=== PATIENT | female | born 1985 | race Caucasian/White ===

== ENCOUNTER → 2018-02-27 | Outpatient (REF) | payer OTHER ==
[~2018-02-27] MED LIST: ACET50TA PO; IBUP80TA PO; PRENTAB9 PO
[2018-03-01 14:54] LABS: HPV HYBRID CAPTURE II Negative (Negative)
== END ==
LOC: M LAB REF 17:55
PROVIDERS: ATTEND Advanced Practice Midwife
DX: Z12.4 Encounter for screening for malignant neoplasm of cervix (principal)

== ENCOUNTER → 2019-03-11 | Outpatient (REF) | payer OTHER ==
[~2019-03-11] MED LIST changes: -ACET50TA PO; +MAPA500T17 PO
[2019-03-11 14:25] LABS: HEMATOCRIT 38.8 % (36.0-47.0); HEMOGLOBIN 13.2 g/dl (12.0-15.5); MEAN CORPUSCULAR HEMOGLOBIN 32.7 pg (27.0-33.0); PLATELET COUNT, AUTOMATED 183 10^3/uL (150-450); RED BLOOD COUNT 4.04 10^6/uL (4.00-5.40); WHITE BLOOD COUNT 5.2 10^3/uL (4.0-10.0)
[2019-03-11 15:02] LABS: CHLAMYDIA DNA AMPLIFICATION NEGATIVE (NEGATIVE); GC DNA AMPLIFICATION NEGATIVE (NEGATIVE)
[2019-03-11 15:08] LABS: HEPATITIS B SURFACE ANTIGEN NEGATIVE (NEGATIVE); HEPATITIS C VIRUS ABY INDEX < 0.0 INDEX (<0.8); HIV 1&2 SCREEN CENTAUR NEGATIVE (NEGATIVE); RUBELLA IgG QUALITATIVE IMMUNE (IMMUNE)
== END ==
LOC: M PLALAB 09:27
PROVIDERS: ATTEND Advanced Practice Midwife
DX: Z32.00 Encounter for pregnancy test, result unknown (principal)

== ENCOUNTER → 2019-05-28 | Outpatient (CLI) | payer OTHER ==
--- NOTE | 2019-05-29 16:44 | REP ---
Clinical: Anatomical evaluation. Comparison: None . Findings: Examination demonstrates a single live intrauterine in variable presentation. motion is identified by technologist. Placenta is noted posterior and grade I with evidence for placenta previa noted. Amniotic fluid volume is normal. Cervix measures 4.0 cm in length and appears closed. No evidence for nuchal cord. Gestational age by LMP 20 weeks 1 day with TERESSA 10/14/2019 . Gestational age by current measurements 19 weeks 68 with TERESSA 10/16/2019 . FHR equals 153 beats per minute. BPD 4.9 cm 20 weeks 5 days HC 17.3 cm 19 weeks 6 days AC 14.8 cm 20 weeks 1 day FL 3.1 cm 19 weeks 5 days HL 3.2 cm 20 weeks 6 days HC/AC ratio 1.17 Estimated weight 321 grams ( 41st percentile). Anatomical assessment demonstrates normal structures including cranium, choroid plexus, cavum, cerebellum/posterior fossa, facial features, lungs, four-chamber heart/ventricular outflow tracts, diaphragm, stomach, cord insertion/three-vessel cord, kidneys/bladder, and extremities. Impression: 1. Posterior placenta with evidence for placenta previa. 2. Single live intrauterine demonstrating appropriate interval growth. Limited evaluation the spine. Remainder of the anatomical assessment is complete and normal.
== END ==
LOC: M WHC 08:48
PROVIDERS: ATTEND Advanced Practice Midwife
DX: Z34.92 Encounter for supervision of normal pregnancy, unspecified, second trimester (principal); Z3A.20 20 weeks gestation of pregnancy

== ENCOUNTER → 2019-06-19 | Outpatient (CLI) | payer OTHER ==
--- NOTE | 2019-06-20 03:41 | REP ---
Clinical: Anatomical evaluation. Comparison: 05/28/2019 Findings: Examination demonstrates a single live intrauterine in variable presentation. motion is identified by technologist. Placenta is noted posterior and grade I evidence for placenta previa. No abruption. Amniotic fluid volume is normal. Cervix measures 4.0 cm in length and appears closed. No evidence for nuchal cord. Gestational age by LMP 23 weeks 2 days with TERESSA 10/14/2019 . Gestational age by current measurements 23 weeks 1 day with TERESSA 10/15/2019 . FHR equals 158 beats per minute. Estimated weight 597 grams ( 50th percentile). Anatomical assessment demonstrates normal structures including spine. Impression: 1. Single live intrauterine in variable presentation demonstrating appropriate interval growth. 2. Posterior placenta with placenta previa noted. 3. In conjunction with prior examination anatomical assessment is complete and normal.
== END ==
LOC: M WHC 10:22
PROVIDERS: ATTEND Advanced Practice Midwife
DX: O44.02 Complete placenta previa NOS or without hemorrhage, second trimester (principal); Z3A.23 23 weeks gestation of pregnancy

== ENCOUNTER → 2019-07-17 | Outpatient (REF) | payer OTHER ==
[2019-07-17 17:47] LABS: HEMATOCRIT 36.9 % (36.0-47.0); HEMOGLOBIN 12.8 g/dl (12.0-15.5); MEAN CORPUSCULAR HEMOGLOBIN 34.2 pg (27.0-33.0); MEAN CORPUSCULAR HGB CONC 34.7 g/dl (32.0-36.5); MEAN CORPUSCULAR VOLUME 98.7 fl (80.0-96.0); PLATELET COUNT, AUTOMATED 165 10^3/uL (150-450); RED BLOOD COUNT 3.74 10^6/uL (4.00-5.40)
== END ==
LOC: M PLALAB 13:30
PROVIDERS: ATTEND Advanced Practice Midwife
DX: O44.02 Complete placenta previa NOS or without hemorrhage, second trimester (principal)
CPT/HCPCS: 36415; 82950; 85027; 86850; 86900; 86901; G0463

== ENCOUNTER → 2019-08-13 | Outpatient (CLI) | payer OTHER ==
--- NOTE | 2019-08-13 16:16 | REP ---
Clinical: History of placenta previa Comparison: 06/19/2019 . Findings: Examination demonstrates a single live intrauterine in cephalic presentation. motion is identified by technologist. Placenta is noted posterior and grade I with complete previa again noted. Amniotic fluid volume is normal. Cervix measures 3.5 cm in length and appears closed. No evidence for nuchal cord. Gestational age by LMP 31 weeks 1 day with TERESSA 10/14/2019 . FHR equals 136 beats per minute. Estimated weight 1961 grams ( 70th percentile). Impression: 1. Single live advanced gestation in cephalic presentation demonstrating appropriate interval growth. 2. Continued evidence for placenta previa covering the internal os.
== END ==
LOC: M WHC 14:29
PROVIDERS: ATTEND Advanced Practice Midwife
DX: O44.03 Complete placenta previa NOS or without hemorrhage, third trimester (principal); Z3A.31 31 weeks gestation of pregnancy

== ENCOUNTER → 2019-09-11 | Outpatient (CLI) | payer OTHER ==
[~2019-09-11] MED LIST changes: +BETAMETHASONE SOLUSPAN 6MG/ML 5ML VIAL (J0702 PER 3MG) ONE
== END ==
LOC: M LDO 15:35
PROVIDERS: ATTEND Advanced Practice Midwife
DX: O44.03 Complete placenta previa NOS or without hemorrhage, third trimester (principal); Z3A.35 35 weeks gestation of pregnancy
CPT/HCPCS: 96372; J0702

== ENCOUNTER → 2019-09-12 | Outpatient (CLI) | payer OTHER ==
[~2019-09-12] MED LIST changes: -BETAMETHASONE SOLUSPAN 6MG/ML 5ML VIAL (J0702 PER 3MG) ONE
== END ==
LOC: M LDO 15:45
PROVIDERS: ATTEND Advanced Practice Midwife
DX: O44.03 Complete placenta previa NOS or without hemorrhage, third trimester (principal); Z3A.35 35 weeks gestation of pregnancy
CPT/HCPCS: 96372; G0378

== ENCOUNTER → 2019-09-13 | Outpatient (REF) | payer OTHER | LOC: M SFHCPLAZ 08:15 | PROVIDERS: ATTEND Obstetrics & Gynecology | DX: Z34.83 Encounter for supervision of other normal pregnancy, third trimester (principal); Z36.85 Encounter for antenatal screening for Streptococcus B | CPT/HCPCS: 87081; G0463 ==

== ENCOUNTER 2019-09-18 07:30 | Inpatient (IN) | payer OTHER ==
[2019-09-25] MEDS ORDERED: BICITRA 30ML SOLN UDC As Ordered ONE (06:08)
[2019-09-25] MEDS ORDERED: ceFAZolin 2 GM/D5W 50 ML IV BAG (J0690 PER 500MG) As Ordered ONE (06:08)
[2019-09-25] MEDS ORDERED: MORPHINE PRES-FREE INJ 10 MG/10 ML VIAL (J2274) As Ordered ONE (07:14)
[2019-09-25] MEDS ORDERED: OXYTOCIN INJ 10 UNITS/ML VIAL (J2590) As Ordered ONE (07:16)
[2019-09-25] MEDS ORDERED: ONDANSETRON 4MG/2ML VIAL As Ordered ONE (08:18)
[2019-09-25] MEDS ORDERED: dexameTHASONE 4 MG/ML 1ML VIAL (J1100 PER 1MG) As Ordered ONE (08:18)
[2019-09-25] MEDS ORDERED: KETOROLAC 60MG 2ML VIAL As Ordered ONE (08:18)
[2019-09-25] MEDS ORDERED: OXYTOCIN 30 UNITS IN 0.9% NaCl 500ML IV BAG (J2590) As Ordered ONE (08:55)
[2019-09-25] MEDS ORDERED: KETOROLAC 30 MG/ML 1ML VIAL As Ordered ONE ×2 (13:53→20:15)
[2019-09-26] MEDS ORDERED: KETOROLAC 30 MG/ML 1ML VIAL ONE (02:01)
[2019-09-26] MEDS ORDERED: PERCOCET 5MG/325MG TAB ONE ×4 (06:31→19:49)
[2019-09-26] MEDS ORDERED: IBUPROFEN 800 MG TAB ONE ×2 (09:24→18:09)
[2019-09-27] MEDS ORDERED: IBUPROFEN 800 MG TAB ONE ×2 (03:32→09:58)
[2019-09-27] MEDS ORDERED: PERCOCET 5MG/325MG TAB ONE (12:49)
[2019-11-17 01:01] LABS: HEMOGLOBIN 12.8 g/dl (12.0-15.5); MEAN CORPUSCULAR HEMOGLOBIN 34.1 pg (27.0-33.0); MEAN CORPUSCULAR HGB CONC 35.6 g/dl (32.0-36.5); PLATELET COUNT, AUTOMATED 178 10^3/uL (150-450); RED BLOOD COUNT 3.75 10^6/uL (4.00-5.40); WHITE BLOOD COUNT 13.9 10^3/uL (4.0-10.0)
[2019-11-17 16:43] LABS: HEMATOCRIT 35.2 % (36.0-47.0); HEMOGLOBIN 11.9 g/dl (12.0-15.5); MEAN CORPUSCULAR HEMOGLOBIN 33.6 pg (27.0-33.0); MEAN CORPUSCULAR HGB CONC 33.8 g/dl (32.0-36.5); MEAN CORPUSCULAR VOLUME 99.4 fl (80.0-96.0); PLATELET COUNT, AUTOMATED 181 10^3/uL (150-450); RED BLOOD COUNT 3.54 10^6/uL (4.00-5.40); WHITE BLOOD COUNT 14.3 10^3/uL (4.0-10.0)
--- NOTE | 2019-11-21 12:45 | RO ---
DATE OF OPERATION: 09/25/2019 PREOPERATIVE DIAGNOSES: * Placenta previa. * 37 weeks gestation. POSTOPERATIVE DIAGNOSES: * Placenta previa. * 37 weeks gestation. PROCEDURE PERFORMED: Primary low-transverse section. FINDINGS: Placenta previa, cephalic presentation. SURGEON: Jairo Mauricio DO ROBOT DESIGNER: Jhoana Parra CNM (essential role in all aspects of the surgery for delivery of the baby and surgical site exposure). ANESTHESIA: Spinal with Duramorph. SPECIMENS SENT TO PATHOLOGY: None. ESTIMATED BLOOD LOSS: 500 mL. FLUIDS PLACED: 1600 mL lactated ringers. DRAINS: Rodriguez catheter. URINE OUTPUT: 25 mL. COMPLICATIONS: None. PREOPERATIVE ANTIBIOTICS: Ancef 2 grams intravenous (IV) x1. DATA: Apgars 9 and 9. weight 3600 grams (7 pounds 15 ounces) INDICATIONS FOR PROCEDURE: Placenta previa at 37 weeks. DESCRIPTION OF PROCEDURE: The patient was counseled and consented on the risks, benefits, indications, and alternatives of the procedure. Informed consent was obtained. She was taken to the operating room with an IV running and placed on the operating room table where spinal anesthesia was administered and found to be adequate. She was then placed in the dorsal supine position with a leftward tilt. Sequential compression devices were placed on the lower extremities. Rodriguez catheter was placed under sterile conditions. The patient was then prepared and draped in a normal sterile fashion. Time-out was performed per protocol. Spinal anesthesia was again found to be adequate. A Pfannenstiel skin incision was made with a 10-blade. This was dissected down to the level of the rectus sheath fascia. The rectus sheath fascia was incised at the midline and stretched manually. The peritoneum was identified. The peritoneal cavity was entered digitally. The peritoneum was stretched. The Mobius retractor was placed into the intraperitoneal cavity. The vesicouterine peritoneum was dissected off to create a bladder flap. A low-transverse uterine incision was created with a 10-blade. The head delivered through the hysterotomy without any difficulty. The remainder of the body delivered with ease. The placenta was noted to be very low consistent with the diagnosis of placenta previa. The placenta was removed manually without any difficulty. No evidence of abnormal placentation/accreta. The uterine cavity was then cleared of all clot and debris. The hysterotomy was then closed with 0-Vicryl in running lock fashion. This was reinforced with a second imbricating layer with 0-Vicryl in running fashion. Two additional spots were reinforced with 3-0 Vicryl with [id number] stitch. The hysterotomy was noted to be hemostatic. The pelvis was then irrigated. The pericolic gutters were cleared of all clot and debris. The sponge, needle, and instrument counts were correct. The peritoneum was closed with 3-0 Vicryl in running fashion. The rectus muscle bellies were closed with 3-0 Vicryl with two interrupted sutures. The rectus sheath fascia was closed with 0-Vicryl in running fashion. The subcutaneous layer was then irrigated and then reapproximated with 3-0 Vicryl in running fashion. The skin was closed with 4-0 Monocryl in subcuticular fashion. Optifoam bandage was placed over the incision. Sponge, needle, and instrument counts were correct. The patient tolerated the entire procedure well. She was transferred to the Post anesthesia care unit (PACU) in good and stable condition. YANDEL
--- NOTE | 2019-11-22 16:00 | DS ---
DATE OF ADMISSION: 09/25/2019 DATE OF DISCHARGE: 09/27/2019 HISTORY: A 34-year-old female at 37 weeks gestation, diagnosed with placenta previa, presents for primary section. HOSPITAL COURSE: On 09/26/2019, the patient underwent a primary low transverse section for placenta previa. Findings were a 3600 gram . There were no complications. Her postoperative course was unremarkable. She had adequate return of bladder and bowel function. Her postoperative hemoglobin was stable. She was deeded stable for discharge on postoperative day #2. ADMISSION DIAGNOSIS: , 37 weeks, placenta previa. DISCHARGE DIAGNOSES: Delivered. PROCEDURE: Primary low transverse section. DISPOSITION: Patient to followup with Dr. Mauricio in 2 weeks. Instructions were reviewed. YANDLE
== END 2019-09-27 10:50 | disposition home or self-care (01) | DRG 773 ==
LOC: M LDI 09-25 05:25
PROVIDERS: ADMIT Obstetrics & Gynecology; ATTEND Obstetrics & Gynecology
PROC: 10D00Z1 Extraction of Products of Conception, Low, Open Approach (ICD-10-PCS; principal; 2019-09-25 07:30)
DX: O44.40 Low lying placenta NOS or without hemorrhage, unspecified trimester (principal); Z3A.39 39 weeks gestation of pregnancy; Z37.0 Single live birth

== ENCOUNTER → 2019-09-23 | Outpatient (CLI) | payer OTHER | LOC: M WHC 16:12 | PROVIDERS: ATTEND Obstetrics & Gynecology | DX: O44.20 Partial placenta previa NOS or without hemorrhage, unspecified trimester (principal) ==

== ENCOUNTER → 2022-06-15 | Outpatient (CLI) | payer OTHER ==
[2022-06-15 18:06] LABS: HEMATOCRIT 38.5 % (36.0-47.0); HEMOGLOBIN 13.4 g/dl (12.0-15.5); MEAN CORPUSCULAR HEMOGLOBIN 33.2 pg (27.0-33.0); MEAN CORPUSCULAR HGB CONC 34.8 g/dl (32.0-36.5); MEAN CORPUSCULAR VOLUME 95.3 fl (80.0-96.0); PLATELET COUNT, AUTOMATED 198 10^3/uL (150-450); RED BLOOD COUNT 4.04 10^6/uL (4.00-5.40); WHITE BLOOD COUNT 7.8 10^3/uL (4.0-10.0)
[2022-06-15 19:04] LABS: HIV 1&2 SCREEN CENTAUR NEGATIVE (NEGATIVE)
[2022-06-15 20:10] LABS: GC DNA AMPLIFICATION NEGATIVE (NEGATIVE)
== END ==
LOC: M PLALAB 15:10
PROVIDERS: ATTEND Advanced Practice Midwife
DX: O34.219 Maternal care for unspecified type scar from previous cesarean delivery (principal); Z3A.13 13 weeks gestation of pregnancy
CPT/HCPCS: 36415; 85027; 86762; 86780; 86803; 86850; 86900; 86901; 87086; 87340; 87389; 87810; 87850; G0463

== ENCOUNTER → 2022-08-08 | Outpatient (CLI) | payer OTHER | LOC: M WHC 08:05 | PROVIDERS: ATTEND Obstetrics & Gynecology | DX: Z34.92 Encounter for supervision of normal pregnancy, unspecified, second trimester (principal); Z3A.20 20 weeks gestation of pregnancy ==

== ENCOUNTER → 2022-11-29 | Outpatient (REF) | payer OTHER | LOC: M SFHCWAGY 12:48 | PROVIDERS: ATTEND Obstetrics & Gynecology | DX: Z36.85 Encounter for antenatal screening for Streptococcus B (principal) | CPT/HCPCS: 87081; G0463 ==

== ENCOUNTER 2022-12-29 18:33 | Inpatient (IN) | payer OTHER ==
[~2022-12-29] VITALS: Ht 180.3 cm; Wt 120.1 kg
[2022-12-29] MEDS ORDERED: TUMS500C PO (19:06)
[2022-12-29] MEDS ORDERED: ONDA-83 PO (19:06)
[2022-12-29] MEDS ORDERED: HOME MED LIST COMPLETE! XX SCH (19:10)
[2022-12-29 19:13] LABS: HEMATOCRIT 35.7 % (36.0-47.0); HEMOGLOBIN 12.5 g/dl (12.0-15.5); MEAN CORPUSCULAR VOLUME 94.2 fl (80.0-96.0); PLATELET COUNT, AUTOMATED 157 10^3/uL (150-450); RED BLOOD COUNT 3.79 10^6/uL (4.00-5.40); WHITE BLOOD COUNT 11.4 10^3/uL (4.0-10.0)
[2022-12-29 19:27] VITALS: BP 107/76
[2022-12-29] MEDS ORDERED: OXYTOCIN DRIP 30 UNITS in IV 1 EA IV SCH (20:50)
[2022-12-29] MEDS ORDERED: LACTATED RINGER'S 1000 ML IV STA (20:50)
[2022-12-29] MEDS ORDERED: OXYTOCIN DRIP 30 UNITS in IV 1 EA IV PRN (20:50)
[2022-12-29] MEDS ORDERED: LIDOCAINE 1% MDV 20ML VIAL INFIL PRN (20:50)
[2022-12-29] MEDS ORDERED: METHYLERGONOVINE MALEATE 0.2MG/ML 1ML VIAL IM PRN (20:50)
[2022-12-29] MEDS ORDERED: CARBOPROST TROMETHAMINE 250 MCG/ML AMP IM PRN (20:50)
[2022-12-29] MEDS ORDERED: TRANEXAMIC ACID INJection 1,000 MG in NS 100 ML IV PRN (20:50)
[2022-12-29 21:34] VITALS: BP 109/69
[2022-12-29] MEDS: LR 1,000 ML IV SCH (21:35)
[2022-12-29] MEDS ORDERED: ONDANSETRON 4MG 2ML VIAL IV PRN (22:05)
[2022-12-29 22:43] VITALS: BP 117/75
[2022-12-30] VITALS (17 sets, daily range): BP systolic 97–149; BP diastolic 61–85; TEMP 98.4; O2SAT 95–100
[2022-12-30] MEDS ORDERED: NALBUPHINE HCL 1MG/0.1ML (100MG/10ML) MDV IV PRN ×2 (08:50→12:30)
[2022-12-30] MEDS ORDERED: oxyCODONE 5MG TAB PO PRN ×2 (08:50→12:30)
[2022-12-30] MEDS ORDERED: fentaNYL 100 MCG/2 ML INJECTION IV PRN ×2 (08:50→12:30)
[2022-12-30] MEDS ORDERED: LR 1,000 ML IV SCH ×2 (08:50→12:25)
[2022-12-30] MEDS ORDERED: ONDANSETRON 4MG 2ML VIAL IV PRN ×5 (08:50→12:30)
[2022-12-30] MEDS ORDERED: ePHEDrine SULFATE 25 MG/5 ML(5MG/ML) SYRINGE IVP PRN (08:50)
[2022-12-30] MEDS ORDERED: **NOTE PATIENT COMMENT** MISC XX SCH (08:50)
[2022-12-30] MEDS ORDERED: PROMETHAZINE 25MG/ML 1ML VIAL IV PRN ×2 (08:50→12:30)
[2022-12-30] MEDS ORDERED: METOCLOPRAMIDE INJ 10MG/2ML VIAL IV PRN (08:50)
[2022-12-30] MEDS ORDERED: NALOXONE INJ 0.4MG/1ML VIAL IV PRN ×3 (08:50)
[2022-12-30] MEDS ORDERED: EPIDURAL/PCA KEYS XX PRN (08:50)
[2022-12-30] MEDS ORDERED: LR 500 ML IV PRN (08:50)
[2022-12-30] MEDS ORDERED: diphenhydrAMINE 50MG/ML VIAL IV PRN ×4 (08:50→12:30)
[2022-12-30] MEDS: LR 1,000 ML IV SCH ×2 (08:59→12:14)
[2022-12-30] MEDS ORDERED: ceFAZolin SOD 3 GM IV Place Holder IV ONE (09:15)
[2022-12-30] MEDS ORDERED: BICITRA 30ML SOLN UDC PO ONE (10:00)
[2022-12-30] MEDS ORDERED: ceFAZolin SOD 2 GM in IV 1 EA IV ONE (10:00)
[2022-12-30] MEDS ORDERED: ceFAZolin SOD 1 GM in D5W MINI-BAG PLUS 50 ML IV ONE (10:00)
[2022-12-30] MEDS ORDERED: MORPHINE PRES-FREE INJ 10 MG/10 ML VIAL As Ordered ONE (10:11)
[2022-12-30] MEDS ORDERED: ONDANSETRON 4MG 2ML VIAL As Ordered ONE ×2 (10:28→10:54)
[2022-12-30] MEDS ORDERED: OXYTOCIN 30UNITS IN 0.9% NaCl 500ML IV BAG As Ordered ONE (10:47)
[2022-12-30] MEDS ORDERED: AZITHROMYCIN INJ 500 MG, VIAL MATE ADAPTER 1 EACH in NS 250 ML IV ONE (11:00)
[2022-12-30] MEDS ORDERED: KETOROLAC 60MG 2ML VIAL As Ordered ONE (11:11)
[2022-12-30] MEDS ORDERED: ACETAMINOPHEN 1000MG 100ML IV BAG As Ordered ONE (11:11)
[2022-12-30] MEDS ORDERED: MEPERIDINE 50 MG/ML 1ML VIAL As Ordered ONE (11:24)
[2022-12-30] MEDS ORDERED: OXYTOCIN INJ 10UNITS/ML 1ML VIAL As Ordered ONE (11:35)
[2022-12-30] MEDS ORDERED: SIMETHICONE 80MG CHEW TAB PO PRN (11:55)
[2022-12-30] MEDS ORDERED: OXYTOCIN DRIP 30 UNITS in IV 1 EA IV SCH (11:55)
[2022-12-30] MEDS ORDERED: RHOGAM 300MCG (1500IU) INJ IM SCH (11:55)
[2022-12-30] MEDS ORDERED: MORPHINE 4 MG/ML 1ML VIAL IV PRN (11:55)
[2022-12-30] MEDS ORDERED: ACETAMINOPHEN 500 MG TAB PO PRN (11:55)
[2022-12-30] MEDS ORDERED: OXYTOCIN DRIP 30 UNITS in IV 1 EA IV PRN (12:00)
[2022-12-30] MEDS: SLF 3 ML SYR IV SCH ×2 (12:12→16:24)
[2022-12-30] MEDS ORDERED: oxyCODONE 5MG TAB As Ordered ONE (12:32)
[2022-12-30] MEDS: KETOROLAC 30 MG/ML 1ML VIAL IV SCH ×2 (17:02→22:54)
[2022-12-30] MEDS: PERCOCET 5MG/325MG TAB PO PRN (20:25)
[2022-12-30] MEDS: DOCUSATE SODIUM 100MG CAPSULE PO SCH (20:26)
[2022-12-31 00:32] LABS: HEMATOCRIT 31.1 % (36.0-47.0); HEMOGLOBIN 10.7 g/dl (12.0-15.5); MEAN CORPUSCULAR HEMOGLOBIN 32.6 pg (27.0-33.0); MEAN CORPUSCULAR HGB CONC 34.4 g/dl (32.0-36.5); MEAN CORPUSCULAR VOLUME 94.8 fl (80.0-96.0); PLATELET COUNT, AUTOMATED 137 10^3/uL (150-450); RED BLOOD COUNT 3.28 10^6/uL (4.00-5.40); WHITE BLOOD COUNT 13.9 10^3/uL (4.0-10.0)
[2022-12-31 00:47] LABS: INR 1.07; PROTHROMBIN TIME 13.6 SECONDS (12.5-14.5)
[2022-12-31 00:48] LABS: PARTIAL THROMBOPLASTIN TIME 25.2 SECONDS (24.8-34.2)
[2022-12-31] MEDS: SLF 3 ML SYR IV SCH (01:00)
[2022-12-31] MEDS: LR 1,000 ML IV SCH ×3 (01:29→11:55)
[2022-12-31 02:00] VITALS: BP 115/64; O2SAT 97
[2022-12-31] MEDS: KETOROLAC 30 MG/ML 1ML VIAL IV SCH (05:10)
[2022-12-31 06:35] VITALS: BP 122/73; O2SAT 96
[2022-12-31 07:01] LABS: HEMATOCRIT 28.9 % (36.0-47.0); HEMOGLOBIN 9.9 g/dl (12.0-15.5); MEAN CORPUSCULAR HEMOGLOBIN 33.1 pg (27.0-33.0); MEAN CORPUSCULAR HGB CONC 34.3 g/dl (32.0-36.5); MEAN CORPUSCULAR VOLUME 96.7 fl (80.0-96.0); PLATELET COUNT, AUTOMATED 140 10^3/uL (150-450); RED BLOOD COUNT 2.99 10^6/uL (4.00-5.40)
[2022-12-31 10:00] VITALS: BP 107/62; O2SAT 100
[2022-12-31] MEDS: DOCUSATE SODIUM 100MG CAPSULE PO SCH ×2 (11:24→21:00)
[2022-12-31] MEDS: PRENATAL VITAMINS CHEWABLE TABLET PO SCH (11:24)
[2022-12-31] MEDS: IBUPROFEN 800 MG TAB PO SCH ×2 (13:45→21:01)
[2022-12-31 14:00] VITALS: BP 129/71; O2SAT 100
[2022-12-31] MEDS: PERCOCET 5MG/325MG TAB PO PRN (15:49)
[2022-12-31 18:00] VITALS: BP 127/63; O2SAT 100
[2022-12-31 21:57] VITALS: BP 119/71; O2SAT 100
[2023-01-01] MEDS: PERCOCET 5MG/325MG TAB PO PRN ×3 (00:28→18:56)
[2023-01-01 02:00] VITALS: BP 126/73; O2SAT 99
[2023-01-01] MEDS: IBUPROFEN 800 MG TAB PO SCH ×3 (05:09→20:35)
[2023-01-01 05:28] VITALS: BP 113/73; O2SAT 100
[2023-01-01] MEDS: PRENATAL VITAMINS CHEWABLE TABLET PO SCH (08:51)
[2023-01-01] MEDS: DOCUSATE SODIUM 100MG CAPSULE PO SCH ×2 (08:53→20:34)
[2023-01-01] MEDS ORDERED: MEASLES,MUMPS,RUBELLA VACCINE INJ (MMR-II) SC.IMMUN ONE (09:00)
[2023-01-01 10:00] VITALS: BP 130/83; O2SAT 100
[2023-01-01 14:00] VITALS: BP 121/72; O2SAT 97
[2023-01-01 18:00] VITALS: BP 120/79; O2SAT 97
[2023-01-01 22:00] VITALS: BP 111/71; O2SAT 95
[2023-01-02 02:00] VITALS: BP 126/72; O2SAT 97
[2023-01-02] MEDS: IBUPROFEN 800 MG TAB PO SCH (05:00)
[2023-01-02 06:00] VITALS: BP 115/67; O2SAT 70
[2023-01-02] MEDS: PRENATAL VITAMINS CHEWABLE TABLET PO SCH (08:09)
[2023-01-02] MEDS: DOCUSATE SODIUM 100MG CAPSULE PO SCH (08:09)
[2023-01-02] MEDS: PERCOCET 5MG/325MG TAB PO PRN (08:10)
[2023-01-02 10:00] VITALS: BP 116/68; O2SAT 98
[2023-01-02] MEDS ORDERED: IBUP80TA PO (11:51)
[2023-01-02] MEDS ORDERED: PERCOCET PO (11:51)
[2023-01-02] MEDS ORDERED: COLA100C5 PO (11:51)
== END 2023-01-02 13:30 | disposition home or self-care (01) | DRG 772 ==
LOC: M LDI 18:33 → M OBS 12-30 13:15
PROVIDERS: ADMIT Obstetrics & Gynecology; ATTEND Obstetrics & Gynecology
PROC: 3E033VJ Introduction of Other Hormone into Peripheral Vein, Percutaneous Approach (ICD-10-PCS; 2022-12-29)
PROC: 3E0DXGC Introduction of Other Therapeutic Substance into Mouth and Pharynx, External Approach (ICD-10-PCS; 2022-12-29)
PROC: 10D00Z1 Extraction of Products of Conception, Low, Open Approach (ICD-10-PCS; principal; 2022-12-30 11:00)
DX: O48.0 Post-term pregnancy (principal); O72.1 Other immediate postpartum hemorrhage; Z37.0 Single live birth; Z3A.41 41 weeks gestation of pregnancy; O34.211 Maternal care for low transverse scar from previous cesarean delivery; O09.523 Supervision of elderly multigravida, third trimester; O61.0 Failed medical induction of labor

== ENCOUNTER → 2023-04-05 | Outpatient (REF) | payer OTHER ==
[~2023-04-05] MED LIST changes: +COLA100C5 PO; +ONDA-83 PO; +PERCOCET PO; +TUMS500C PO
== END ==
LOC: M SFHCWAGY 13:17
PROVIDERS: ATTEND Nurse Practitioner Family
DX: Z12.4 Encounter for screening for malignant neoplasm of cervix (principal)
CPT/HCPCS: 87624; G0123

== ENCOUNTER → 2025-01-30 | Outpatient (CLI) | payer OTHER ==
[2025-01-30 12:29] LABS: PLATELET COUNT, AUTOMATED 204 10^3/uL (150-450)
[2025-01-30 12:36] LABS: ALT/SGPT 9 U/L (7.0-40); AST/SGOT 12 U/L (<34); CALCIUM LEVEL 8.3 MG/DL (8.5-10.1); CARBON DIOXIDE LEVEL 30 MMOL/L (20-31); CHLORIDE LEVEL 105 MMOL/L (98-107); CHOLESTEROL LEVEL 164 MG/DL (<200); CHOLESTEROL RISK RATIO 3.13 (<5); CREATININE FOR GFR 0.74 MG/DL (0.55-1.30); GLOMERULAR FILTRATION RATE > 90.0 (>60); LDL CHOLESTEROL 101.7 MG/DL (<100); NON-HDL-C 111.7 MG/DL; POTASSIUM SERUM 4.3 MMOL/L (3.5-5.1); SODIUM LEVEL 144 MMOL/L (136-145); TRIGLYCERIDES LEVEL 50 MG/DL (<150)
== END ==
LOC: M WUC 08:20
PROVIDERS: ATTEND Physician Assistant
DX: Z00.00 Encounter for general adult medical examination without abnormal findings (principal); M25.561 Pain in right knee